=== PATIENT | female | born 1980 | race Caucasian/White ===

== ENCOUNTER → 2017-11-30 | Outpatient (CLI) | payer MEDICAID ==
[2017-07-07 21:00] VITALS: BMI 24.7
[~2017-11-30] MED LIST: IBUP800T37 PO; PREN-129 PO; PROG200C PO
--- NOTE | 2017-11-30 09:08 | RADIOLOGY IMAGING REPORT ---
FACILITY: [facility] PATIENT NAME: Abigail Patino : 1980 MR: [id number] V: [id number] EXAM DATE: ORDERING PHYSICIAN: FRANK CARLOS TECHNOLOGIST: [place] [facility] [place]: Abigail Patino : 1980 Visit/Account:[id number] Date of Sevice: 11/30/2017 GALLBLADDER HISTORY: Right upper quadrant pain and nausea COMPARISON: None. FINDINGS: Gallbladder: Unremarkable; no stones or sludge. Liver: Negative. Common duct: Normal, 3.3 mm diameter. Pancreas: Partially obscured by bowel, visualized aspects unremarkable. Right kidney: Unremarkable as imaged measuring 9.8 cm in length Upper abdominal aorta and IVC: Patent. Ascites: None visualized. IMPRESSION: Unremarkable right upper quadrant ultrasound Report Dictated By: Sakshi Rodriguez MD at 11/30/2017 8:59 AM Report E-Signed By: Sakshi Rodriguez MD at 11/30/2017 9:03 AM WSN:[id number]
== END ==
LOC: US 02:00
PROVIDERS: ATTEND Obstetrics & Gynecology
DX: R10.11 Right upper quadrant pain (principal); R11.0 Nausea
CPT/HCPCS: 76705

== ENCOUNTER → 2018-01-13 | Outpatient (CLI) | payer MEDICAID ==
[2017-07-07 21:00] VITALS: BMI 24.7
== END ==
LOC: LAB 10:57
PROVIDERS: ATTEND Obstetrics & Gynecology
DX: R53.83 Other fatigue (principal)
CPT/HCPCS: 36415; 82670; 84144